=== PATIENT | female | born 1985 ===

== ENCOUNTER 2017-11-20 09:24 | Observation (INO) | payer OTHER ==
--- NOTE | 2017-11-20 07:30 | PDGENHP ---
History and Physical History and Physical: Assessment and Plan: 1. Endometriosis determined by laparoscopy Paula has a long history of laparoscopic proven endometriosis. Her disease was inadequately treated in April 2016 based on the intraoperative photos which I have reviewed. She is extremely tired of the chronic pain which has greatly interfered with her life. She has failed medical management. We reviewed all conservative and surgical options. At the end of our discussion she is interested in surgical intervention. This will be a robotic assisted total laparoscopic hysterectomy, excision of all lesions of endometriosis, and rectocele repair. We discussed the pros and cons of removing her ovaries. She would like to try to leave one in place if possible. 2. Dysmenorrhea 3. Rectocele Subjective: Patient ID: Paula Garrido is a 32 y.o. female who presents to [facility] for endometriosis. CORNEL Mitchell is a 32-year-old para 3 woman who presents to discuss endometriosis. Her dysmenorrhea dates back to the age of 14. Her cycles are regular but short about every 23 days. She will bleed a days each cycle. Four of the days are heavy when she will have to change her pad every 4-5 hours. Tampons causes pain. She has pain on a daily basis. The pain worsens during her menses. It increases in intensity several days before starting her flow. It is across her entire low pelvis but worse in the left lower quadrant. It will radiate to her low back and down her left anterior thigh. She also describes a sharp and crampy pain. She has another spike in pain around the time of ovulation. Her history is significant for a prior ectopic in 2009. She apparently was told that the cul-de-sac was covered with endometriosis. In 2011 she underwent a laparoscopy with Dr Jacobs in [place] and was told everything looked fine. Afterwards her pain worsened. She has tried various options for medical management including hormones and Lupron. She had a third laparoscopy in 2015 and was told she had significant endometriosis around the uterus and left ovary. Her left ovary was removed. Unfortunately her left lower quadrant pain worsened. She has undergone a CT scan and recent colonoscopy which were reportedly normal. She brought in a copy of her operative photos from April 2016 which shows multiple lesions of endometriosis throughout the posterior cul-de-sac, bilateral ovarian fossa is, uterosacral ligaments as well as serosal surface of the uterus. She only had a few lesions on her ovaries. Fortunately there is no adhesive disease.. She has no dyspareunia but some worsening of pain after intercourse. She has significant discomfort before bowel movements. She often feels the need to support the vagina to pass stool and gas. PastMedicalHistory Past Medical History: Diagnosis Date Gastrointestinal disorder Multiple food intolerances Urinary tract infection Varicella PastSurgicalHistory Past Surgical History: Procedure Laterality Date ANKLE SURGERY Right 2001 ECTOPIC SURGERY 2010 OVARY REMOVAL Left 2016 PELVIC LAPAROSCOPY 2012, 2015 WISDOM TOOTH EXTRACTION 2000 CURRENT MEDICATIONS: Current Outpatient Prescriptions Medication Sig ibuprofen (ADVIL,MOTRIN) 200 mg tablet Take by mouth as needed for Pain. Take with food. LACTOBACILLUS ACIDOPHILUS (PROBIOTIC PO) NALTREXONE HCL (NALTREXONE PO) Take 3 mg by mouth. PROTEIN SUPPLEMENT PO No current facility-administered medications for this visit. ALLERGIES: Review of patient's allergies indicates not on file. I have reviewed, verified and agree with the past medical, surgical, , family, social and ROS history as documented by the RN today. Objective: Vital Signs: Visit Vitals BP 98/60 Pulse 74 Temp 37 C (98.6 F) (Temporal Artery) Resp 16 Ht 1.6 m (5' 3") Wt 49.8 kg (109 lb 12.8 oz) SpO2 98% BMI 19.45 kg/m Physical Exam Gen: This is an alert, well developed woman in no distress. Neuro: She moves all extremities. Psych: She is appropriate, oriented, with normal affect. Neck: No thyroid enlargement, adenopathy, or tenderness. Lungs: Clear to ascultation, no wheezes or rales. Heart: Regular rate and rhythm without obvious murmurs. Abdomen: Soft, non-tender, without guarding, rebound, or masses. Extremities: No edema or cyanosis. Pelvic: Normal external genitalia. Moderately gaping introitus, vagina without discharge, adequately estrogenized, she has a second degree/almost third degree rectocele. Cervix without lesions or discharge. Uterus normal sized, reduced mobility and tender. She is tender surrounding the cervix, throughout the posterior cul-de-sac and along both uterosacral ligaments. Adnexa non-tender without enlargement. DATA: I have reviewed the pertinent medical records. TIME/COMMUNICATION: I personally spent a total of 60 minutes. Of that 50 minutes was counseling/ coordination of patient's care. See my note above for details. Kelton Rosado MD Board Certified Female Pelvic Medicine and Reconstructive Surgery Director of Minimally Invasive Gynecologic Surgery, [facility] Surgeon in Minimally Invasive Gynecologic Surgery [facility] Surgeon in Robotic Surgery
[2017-11-20] MEDS ORDERED: ceFAZolin 2 GM/SWFI 2 GM/20 ML SYR IVP ONE (10:09)
[2017-11-20] MEDS ORDERED: GABAPENTIN 300 MG CAP PO ONE (10:09)
[2017-11-20] MEDS ORDERED: ACETAMINOPHEN 500 MG TAB PO ONE (10:09)
[2017-11-20] MEDS ORDERED: PHENAZOPYRIDINE HCL 200 MG TAB PO ONE (10:09)
[2017-11-20] MEDS ORDERED: LR 1,000 ML IV ONE (10:10)
[2017-11-20] MEDS ORDERED: MIDAZOLAM 2 MG/2 ML VIAL IVP ONE (12:30)
[2017-11-20] MEDS ORDERED: HYDROCODONE/APAP 5/325 TAB PO PRN (12:32)
[2017-11-20] MEDS ORDERED: OXYCODONE/APAP 5/325 TAB PO PRN (12:32)
[2017-11-20] MEDS ORDERED: PROMETHAZINE HCL 25 MG/ML INJ IVP PRN ×2 (12:32→14:39)
[2017-11-20] MEDS ORDERED: ONDANSETRON 4 MG/2 ML VIAL IVP PRN ×2 (12:32→14:39)
[2017-11-20] MEDS ORDERED: LR 500 ML IV PRN (12:32)
[2017-11-20] MEDS ORDERED: NALOXONE HCL 0.4 MG/ML INJ IVP PRN (12:32)
--- NOTE | 2017-11-20 12:32 | PDANEPAE ---
ANE Past Medical History - Cardiovascular History Hx Hypertension: No Hx Arrhythmias: No Hx Chest Pain: No Hx Coronary Artery / Peripheral Vascular Disease: No Hx CHF / Valvular Disease: No Hx Palpitations: No - Pulmonary History Hx COPD: No Hx Asthma/Reactive Airway Disease: No Hx Recent Upper Respiratory Infection: No Hx Oxygen in Use at Home: No Hx Sleep Apnea: No Sleep Apnea Screening Result - Last Documented: Negative - Neurologic History Hx Cerebrovascular Accident: No Hx Seizures: No Hx Dementia: No - Endocrine History Hx Diabetes: No Hypothyroid: No Hyperthyroid: No Obesity: no - Renal History Hx Renal Disorders: No - Liver History Hx Hepatic Disorders: No - Neurological & Psychiatric Hx Hx Neurological and Psychiatric Disorders: No - Cancer History Hx Cancer: No - Congenital Disorder History Hx Congenital Disorders: No - GI History GERD: no Hx Gastrointestinal Disorders: Yes Gastrointestinal History Comment: DIGESTIVE ISSUES. FOOD INTOLERANCES. 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 WISDOM TEETH. LAPAROSCOPY - ECTOPIC. LAPAPOSCOPY ENDOMETRIOSIS. LAPAPOSCOPY ABLATION ENDOMETRIOSIS & OOPHERECTOMY ANE Review of Systems Review of Systems: - Exercise capacity METS (RN): 5 METS ANE Patient History - Allergies Allergies/Adverse Reactions: adhesive tape Allergy (Verified 11/04/17 14:13) IRRITATION, RASH - Home Medications Home Medications: Herbals/Supplements -Info Only 1 ea PO DAILY 10/31/17 [Last Taken 07/31/17] Ibuprofen [Motrin (*)] 600 - 800 mg PO DAILY PRN 10/31/17 [Last Taken 11/13/17] Naltrexone 4.5mg Tab Compound 4.5 mg PO DAILY 10/31/17 [Last Taken 11/13/17] - NPO status NPO Since - Liquids (Date): 11/20/17 NPO Since - Liquids (Time): 07:30 NPO Since - Solids (Date): 11/19/17 NPO Since - Solids (Time): 19:00 - Anes Hx Anes Hx: post operative nausea - Smoking Hx Smoking Status: Never smoked - Alcohol Use Alcohol Use: Rarely - Family Anes Hx Family Anes Hx: neg - N/A Family Hx Anesthesia Complications: NEG ANE Labs/Vital Signs - Vital Signs Blood Pressure: 111/80 Heart Rate: 84 Respiratory Rate: 16 O2 Sat (%): 98 Height: 160.02 cm Weight: 49.442 kg ANE Physical Exam - Airway Neck exam: FROM Mallampati Score: Class 2 Mouth exam: normal dental/mouth exam - Pulmonary Pulmonary: no respiratory distress, no rales or rhonchi, clear to auscultation - Cardiovascular Cardiovascular: regular rate and rhythym, no murmur, rub, or gallop - ASA Status ASA Status: I ANE Anesthesia Plan Anesthesia Plan: general endotracheal anesthesia Total IV Anesthesia: No
[2017-11-20] MEDS ORDERED: REMIFENTANIL HCL 1 MG VIAL ONE (12:36)
[2017-11-20] MEDS ORDERED: fentaNYL 100 MCG/2 ML INJ ONE ×3 (12:36→15:24)
[2017-11-20] MEDS ORDERED: MIDAZOLAM 2 MG/2 ML VIAL ONE (12:37)
[2017-11-20] MEDS ORDERED: PROPOFOL 200 MG/20 ML VIAL ONE (12:37)
[2017-11-20] MEDS ORDERED: RANITIDINE 50 MG/2 ML VIAL ONE (12:37)
[2017-11-20] MEDS ORDERED: DEXAMETHASONE 4 MG/ML VIAL ONE (12:37)
[2017-11-20] MEDS ORDERED: ONDANSETRON 4 MG/2 ML VIAL ONE ×2 (12:37→15:26)
[2017-11-20] MEDS ORDERED: ROCURONIUM 100 MG/10 ML VIAL ONE (12:37)
[2017-11-20] MEDS ORDERED: PROPOFOL/EMULSION 500 MG/50 ML BOTTLE IV ONE (12:37)
[2017-11-20] MEDS ORDERED: LIDOCAINE 2% 5 ML SDV ONE (12:37)
[2017-11-20] MEDS ORDERED: BUPIVACAINE/EPI 0.5% 30 ML SDV ONE (13:03)
[2017-11-20] MEDS ORDERED: KETOROLAC 30 MG/1 ML SDV ONE (13:54)
[2017-11-20] MEDS ORDERED: SUGAMMADEX SODIUM 200 MG/2 ML VIAL IVP ONE (14:15)
[2017-11-20] MEDS ORDERED: HYDROmorphONE/DILAUDID 1 MG/ML INJ IVP PRN (14:39)
--- NOTE | 2017-11-20 14:42 | POSTOPPROG ---
Post Op Note Date of Operation: 11/20/17 Surgeon: Kelton Rosado [employer] Cable[employer] Machine Operator: Sariah Renner Anesthesia: GET(General Endotracheal) Pre-op Diagnosis: dysmenorrhea, endometriosis, rectocele Post-op Diagnosis: same Procedure: robotic hyst, bilat ureterolysis, excise endo, rectocele, cysto Findings: ureters function at end of case Inf/Abcess present in the surg proc area at time of surgery?: No EBL: Minimal Complications: None
--- NOTE | 2017-11-20 14:53 | POSTANESTH ---
Post Anesthetic Evaluation Cardiovascular Status: Normal, Stable Respiratory Status: Normal, Stable Level of Consciousness/Mental Status: Mildly Sleepy, Arousable Pain Control: Adequate, Prn Tx Ordered Nausea/Vomiting Control: Adequate, Prn Tx Ordered Complications Possibly Related to Anesthesia: None Noted
[2017-11-20] MEDS ORDERED: HYDROmorphONE/DILAUDID 1 MG/ML INJ ONE ×2 (14:56→15:24)
[2017-11-20] MEDS: fentaNYL 100 MCG/2 ML INJ IVP PRN ×4 (14:57→15:37)
[2017-11-20] MEDS: HYDROmorphONE/DILAUDID 1 MG/ML INJ IVP PRN ×2 (14:59→15:12)
[2017-11-20] MEDS ORDERED: LR 1,000 ML IV SCH (15:00)
[2017-11-20] MEDS ORDERED: PROMETHAZINE HCL 25 MG/ML INJ ONE (15:26)
--- NOTE | 2017-11-20 15:55 | GOP ---
[f rep st] OPERATIVE REPORT DATE OF OPERATION: 11/20/2017 SURGEON: Kelton Rosado MD PACKING LINE OPERATOR: Sariah Renner CFA. ANESTHESIA: General. PREOPERATIVE DIAGNOSIS: 1. Dysmenorrhea. 2. Endometriosis. 3. Rectocele. 4. Uterine prolapse. 5. Cyclic pelvic pain. POSTOPERATIVE DIAGNOSIS: 1. Dysmenorrhea. 2. Endometriosis. 3. Rectocele. 4. Uterine prolapse. 5. Cyclic pelvic pain. PROCEDURE PERFORMED: 1. Robotic-assisted total laparoscopic hysterectomy, right salpingectomy. 2. Excision of endometriosis in posterior cul-de-sac, bilateral ovarian fossae. 3. Bilateral ureterolysis. 4. Bilateral uterosacral ligament colpopexy. 5. Rectocele repair. 6. Right ovarian pexy. 7. Cystoscopy. FINDINGS: SPECIMENS: Uterus, right tube and pelvic peritoneum with endometriosis. ESTIMATED BLOOD LOSS: Scant. DESCRIPTION OF PROCEDURE: Paula was taken to the operating room where she was identified. General a nesthesia was administered and found to be adequate. She was placed in the lithotomy position and pr epared and draped in normal sterile fashion. A VCare uterine manipulator was placed into the endomet rial cavity and sutured to the cervix. A Lowry catheter was then placed. A 1 cm infraumbilical incision made with a scalpel. The Veress needle with the CO2 gas flowing was a dvanced into the peritoneal cavity. The abdomen was then insufflated with carbon dioxide gas. The 1 2 mm trocar followed by the laparoscope were then inserted. The upper abdomen was unremarkable. Two lateral ports were placed in the right and one on the left under direct visualization. She then was placed in Trendelenburg position and the da Jose Maria robot docked on the left side. The instruments we re then brought into the abdominal cavity under direct visualization. The patient was found to have endometriosis throughout the posterior cul-de-sac and bilateral ovarian fossae. The posterior cul-de-sac peritoneum was first completely excised from the distal rectum up to the cervix. Because of the endometriosis overlying both ureters, a bilateral ureterolysis was req uired. The peritoneum at the pelvic brim was incised. The ureters were gently dissected free and la teralized off the overlying peritoneum and endometriosis all the way down to the bladder. Once this was accomplished, the entire ovarian fossa, peritoneum on both sides was completely excised. The right fallopian tube was along the mesosalpinx. The utero-ovarian ligamen, followed by the round ligament were then cauterized and transected. The anterior leaf of the broad ligament was then incised over the right uterine vessels across the cervix and across the left uterine vessels. The bladder was gently dissected off the cervix and upper vagina. The uterine vasculature was then c auterized and transected bilaterally. A circumferential colpotomy incision was then made with the [employer] t roc. All specimens were removed through the vagina. The vaginal cuff was then closed with a ru nning suture of 0 V-Loc 180. A bilateral uterosacral ligament colpopexy was performed by attaching t he lateral aspects of the vaginal cuff to the ipsilateral uterosacral ligaments near their insertion into the coccygeal-sacrospinous ligament complexes. The pelvis was then copiously irrigated with jerri rile saline. Because of the cyclic pelvic pain, a right ovarian pexy was performed by attaching the r ight ovary to the ipsilateral round ligament near the internal inguinal ring. The robot was then und ocked. The fascia was closed with 0 Vicryl, the skin with 4-0 Monocryl and surgical adhesive. Cystoscopy was then performed. Both ureters had vigorous jets of urine. There was no evidence of bl adder nor urethral injury seen. No suture was seen within the bladder. No obvious pathology was see n. A transverse incision was then made along the perineal body. The posterior vaginal epithelium was un dermined with the Metzenbaum scissors and then incised sagittally. The epithelium was then dissected off the underlying rectovaginal connective tissue. The connective tissue was plicated in the midlin e with interrupted sutures of 0 Vicryl. The bulbous spongiosis and transverse perineal muscles were plicated in the midline. The excess epithelium was then trimmed and closed with a running 3-0 Vicryl suture. Vaginal packing was then placed, anesthesia was reversed, and the patient taken the PACU aw yue, in stable condition. COMPLICATIONS: None. DISPOSITION: Patient stable to PACU. /[id number]/MODL
[2017-11-20] MEDS ORDERED: NALOXONE HCL 0.4 MG/ML INJ ONE (18:47)
[2017-11-20] MEDS: KETOROLAC 30 MG/1 ML SDV IVP SCH (20:42)
[2017-11-20] MEDS: DOCUSATE SODIUM 100 MG CAP PO SCH (23:59)
[2017-11-20] MEDS: SIMETHICONE 80 MG TAB CHEW PO SCH (23:59)
[2017-11-21] MEDS: KETOROLAC 30 MG/1 ML SDV IVP SCH ×3 (02:26→15:07)
[2017-11-21] MEDS: OXYCODONE/APAP 5/325 TAB PO PRN ×2 (05:46→11:59)
[2017-11-21 08:26] VITALS: RESP 16
[2017-11-21] MEDS: DOCUSATE SODIUM 100 MG CAP PO SCH (08:59)
[2017-11-21] MEDS: SIMETHICONE 80 MG TAB CHEW PO SCH ×2 (08:59→15:38)
[2017-11-21 15:03] VITALS: BP 82/54; PULSE 76; TEMP 98.4; O2SAT 94
== END 2017-11-21 16:10 | disposition home or self-care (01) ==
LOC: F3E 09:24 → FOB 16:48
PROVIDERS: ADMIT Obstetrics & Gynecology; ATTEND Obstetrics & Gynecology
DX: N94.6 Dysmenorrhea, unspecified (principal); N80.3 Endometriosis of pelvic peritoneum; N81.6 Rectocele; N81.4 Uterovaginal prolapse, unspecified; R10.2 Pelvic and perineal pain
CPT/HCPCS: 57250; 57425; 58571; 58662; 58679; G0378; J0690; J1100; J1170; J1885; J2250; J2310; J2405; J2550; J2704; J2780; J3010